=== PATIENT | female | born 1990 | race Caucasian/White ===

== ENCOUNTER 2016-10-30 16:46 | Emergency (ER) | payer MEDICAID ==
[~2016-10-30] VITALS: Wt 64.5 kg
[2016-10-30] MEDS ORDERED: ONDANSETRON 4 MG INJ IV STA (18:15)
[2016-10-30 18:30] LABS: BASOPHILS % 0.4 % (0.0-2.0); EOSINOPHILS # 0.1 10^3/ul (0.0-0.5); EOSINOPHILS % 0.6 % (0.0-7.0); HEMATOCRIT 39.9 % (37.0-47.0); HEMOGLOBIN 13.7 g/dl (12.0-16.0); LYMPHOCYTES # 2.8 10^3/ul (0.8-2.9); LYMPHOCYTES % 28.7 % (15.0-51.0); MEAN CORPUSCULAR HEMOGLOBIN 32.6 pg (29.0-33.0); MEAN CORPUSCULAR HGB CONC 34.3 g/dl (32.0-37.0); MEAN CORPUSCULAR VOLUME 95.3 fl (82.0-101.0); MEAN PLATELET VOLUME 8.8 fl (7.4-10.4); MONOCYTE # 0.5 10^3/ul (0.3-0.9); NEUTROPHIL # 6.3 10^3/ul (1.6-7.5); NEUTROPHILS % 65.3 % (39.0-77.0); PLATELET COUNT 271 10^3/UL (140-440); RED BLOOD COUNT 4.19 10^6/ul (4.20-5.40); UNCORRECTED WBC 9.6 10^3/ul (4.8-10.8); WHITE BLOOD COUNT 9.6 10^3/ul (4.8-10.8)
[2016-10-30] MEDS ORDERED: morphine 2 MG INJ IV ONE (18:30)
[2016-10-30 18:31] LABS: ADD UMIC YES; URINE BILIRUBIN (Dip) 1+ (NEGATIVE); URINE BLOOD (Dip) 2+ (NEGATIVE); URINE COLOR YELLOW (YELLOW); URINE GLUCOSE (Dip) NEGATIVE (NEGATIVE); URINE KETONES (Dip) 40 (NEGATIVE); URINE LEUKOCYTE ESTERASE (Dip) NEGATIVE (NEGATIVE); URINE NITRITE (Dip) NEGATIVE (NEGATIVE); URINE TOTAL PROTEIN (Dip) TRACE (NEGATIVE); URINE UROBILINOGEN (Dip) 0.2 E.U./dL (0.1-1.0)
[2016-10-30 18:37] LABS: CONDITION 1
[2016-10-30 18:39] LABS: ALBUMIN 4.7 g/dl (3.3-4.9); POTASSIUM 3.5 mmol/L (3.5-5.1)
[2016-10-30 18:41] LABS: CREATININE 0.79 mg/dl (0.44-1.00)
[2016-10-30 18:42] LABS: ALBUMIN/GLOBULIN RATIO 1.3; BILIRUBIN,INDIRECT 0.4 mg/dl (0-1.1); BILIRUBIN,TOTAL 0.4 mg/dl (0.2-1.3); TOTAL PROTEIN 8.3 g/dl (6.1-8.1)
[2016-10-30 18:51] LABS: BACTERIA,URINE FEW; ICTOTEST NEGATIVE (NEGATIVE); SQUAMOUS EPITHELIAL CELL,UR FEW; TRANSITIONAL EPI CELLS,URINE MODERATE
[2016-10-30 18:52] LABS: MUCUS,URINE MANY
--- NOTE | 2016-10-30 19:16 | RADRPT ---
PROCEDURE: Right Upper Quadrant Ultrasound. CLINICAL INDICATION: Abdominal Pain TECHNIQUE: Multiple real-time images were acquired of the patient's right upper quadrant abdomen a nd retroperitoneum utilizing a high resolution transducer. COMPARISON: None FINDINGS: The liver measures 12.2 cm, and demonstrates normal echogenicity. The main portal vein is patent wit h proper directional flow. There is no intrahepatic biliary ductal dilatation. The extrahepatic comm on bile duct measures 1-2 mm. The gallbladder is without stones, wall thickening, or pericholecystic fluid. The visualized pancreas is unremarkable. The right kidney measures 8.8 x 3.4 x 4.9 cm and demonstrates normal echotexture. There is no right renal calculus or hydronephrosis. The visualized abdominal aorta and IVC are grossly unremarkable. IMPRESSION: Unremarkable right upper quadrant abdominal ultrasound. No cholelithiasis or acute cholecystitis. Normal CBD. RPTAT: EE Physician Khadijah Date Time Electronically viewed and signed by Physician Khadijah on 10/30/2016 19:15 /
--- NOTE | 2016-10-30 19:33 | RADRPT ---
PROCEDURE: XR Chest AP portable CLINICAL INDICATION: Flank pain TECHNIQUE: An AP portable radiograph of the chest was submitted. COMPARISON: None. FINDINGS: Support Hardware: None Cardiovascular: The cardiovascular silhouette appears unremarkable. Lung Dasilva: The lung dasilva are mildly hyperexpanded clear. Pleural Spaces: No pneumothorax or pleural effusion is identified. Osseous Structures: The osseous structures appear intact. Soft Tissues: The soft tissues appear unremarkable. IMPRESSION: 1. Mild pulmonary hyperexpansion. 2. Otherwise, unremarkable portable chest. Physician Otf Date Time Electronically viewed and signed by Carlos A Adorno Physician on 10/30/2016 19:33 /
[2016-10-30] MEDS ORDERED: TRAM50TA2 PO (19:39)
[2016-10-30] MEDS ORDERED: IBUP-1542 PO (19:39)
--- NOTE | 2016-10-30 19:43 | ERD ---
ER Documentation Chief Complaint Date/Time DATE: 10/30/16 TIME: 19:41 Chief Complaint RIGHT UPPER QUADRANT ABD PAIN FOR FEW DAYS. NAUSEA NO VOMITING HPI This 25-year-old female presents with right upper quadrant abdominal pain for approximately 3 days radiating from her back. She has mild nausea but no vomiting. She has no urinary complaints and there is no association with food or inciting events patient has a cough, shortness breath or chest pain. ROS All systems reviewed and are negative except as per history of present illness. Medications Home Meds Active Scripts Tramadol HCl (Tramadol HCl) 50 Mg Tablet, 50 MG PO Q4 Y for PAIN, #20 TAB Prov:SHEKHAR MARQUEZ MD 10/30/16 Ibuprofen* (Motrin*) 600 Mg Tab, 600 MG PO Q6, #20 TAB Prov:SHEKHAR MARQUEZ MD 10/30/16 Allergies Allergies: Coded Allergies: No Known Allergy (Unverified , 10/30/16) PMhx/Soc Medical and Surgical Hx: pt denies Medical Hx, pt denies Surgical Hx Hx Alcohol Use: No Hx Substance Use: No Hx Tobacco Use: No Smoking Status: Never smoker Physical Exam Vitals Vital Signs Date Time Temp Pulse Resp B/P Pulse Ox O2 Delivery O2 Flow Rate FiO2 10/30/16 17:28 98.6 98 20 159/86 98 Physical Exam Const: [] Alert, [id number]. Head: Atraumatic Eyes: Normal Conjunctiva ENT: Normal External Ears, Nose and Mouth. Neck: Full range of motion..~ No meningismus. Resp: Clear to auscultation bilaterally Cardio: Regular rate and rhythm, no murmurs Abd: Soft, minimal right upper quadrant tenderness or Matt sign. There is some mild right CVA tenderness, non distended. Normal bowel sounds Skin: No petechiae or rashes Back: No midline or flank tenderness Ext: No cyanosis, or edema Neur: Awake and alert Psych: Normal Mood and Affect Result Diagram: 10/30/16180410/30/161804 Results 24 hrs Laboratory Tests Test 10/30/16 18:05 Alanine Aminotransferase (ALT/SGPT) 66IU/L Albumin 4.7g/dl Albumin/Globulin Ratio 1.30 Alkaline Phosphatase 81IU/L Anion Gap 23 Aspartate Amino Transf (AST/SGOT) 35IU/L Basophils # 0.010^3/ul Basophils % 0.4% Blood Urea Nitrogen 15mg/dl Calcium Level 10.0mg/dl Carbon Dioxide Level 23mmol/L Chloride Level 105mmol/L Creatinine 0.79mg/dl Direct Bilirubin 0.00mg/dl Eosinophils # 0.110^3/ul Eosinophils % 0.6% Globulin 3.60g/dl Glucose Level 101mg/dl Hematocrit 39.9% Hemoglobin 13.7g/dl Indirect Bilirubin 0.4mg/dl Lipase 59U/L Lymphocytes # 2.810^3/ul Lymphocytes % 28.7% Mean Corpuscular Hemoglobin 32.6pg Mean Corpuscular Hemoglobin Concent 34.3g/dl Mean Corpuscular Volume 95.3fl Mean Platelet Volume 8.8fl Monocytes # 0.510^3/ul Monocytes % 5.0% Neutrophils # 6.310^3/ul Neutrophils % 65.3% Nucleated Red Blood Cells # 0.010^3/ul Nucleated Red Blood Cells % 0.0/100WBC Platelet Count 85464^3/UL Potassium Level 3.5mmol/L Red Blood Count 4.1910^6/ul Red Cell Distribution Width 13.0% Sodium Level 147mmol/L Total Bilirubin 0.4mg/dl Total Protein 8.3g/dl Urine Bacteria FEW Urine Bilirubin 1+ Urine Clarity SLIGHTLY CLOUDY Urine Color YELLOW Urine Glucose NEGATIVE% Urine Hemoglobin 2+ Urine Ictotest NEGATIVE Urine Ketones 40 Urine Leukocyte Esterase NEGATIVE Urine Microscopic RBC 2-5/HPF Urine Microscopic WBC 0-2/HPF Urine Mucus MANY Urine Nitrite NEGATIVE Urine Specific [place] >=1.030 Urine Squamous Epithelial Cells FEW Urine Total Protein TRACE Urine Transitional Epithelial Cells MODERATE Urine Urobilinogen 0.2 E.U./dL Urine pH 6.0 White Blood Count 9.610^3/ul Current Medications Medications (Trade) Dose Ordered Sig/Cynthia Route PRN Reason Start Time Stop Time Status Last Admin Dose Admin Morphine Sulfate (morphine) 2 mg ONCE ONCE IV 10/30/16 18:30 10/30/16 18:31 DC 10/30/16 18:52 Ondansetron HCl (Zofran Inj) 4 mg ONCE STAT IV 10/30/16 18:15 10/30/16 18:16 DC 10/30/16 18:52 Procedures/MDM HCG is negative and urine is negative for leukocytes, nitrites and blood. CBC and CMP and lipase are all normal. Right upper quadrant ultrasound read as normal. Chest X-ray 1V Interpreted by me: Soft Tissue: No acute abnormalities Bones: No acute abnormalities Mediastinum/Cardiac Silhouette/Lungs: [No acute abnormalities] impression of normal 1 view chest x-ray Patient presents with right upper quadrant pain of uncertain etiology. May be muscular skeletal. Signs and symptoms do not suggest pulmonary emphysema, pneumonia, UTI, hepatobiliary disease. There is no signs or symptoms of acute abdomen. Patient was treated with tramadol and ibuprofen and observation at home . The patient was stable with no new complaints during the ER course. Clinically, there is no current evidence to suggest meningitis, sepsis, acute abdomen, pneumonia, acute coronary syndrome, pulmonary embolism, or any other emergent condition appearing to require further evaluation or hospitalization. The patient should certainly return for any new or worsening symptoms per the aftercare instructions. They should otherwise follow-up with her primary care doctor for reevaluation this week. Departure Diagnosis: Primary Impression: Abdominal pain Abdominal location: right upper quadrant Qualified Code: R10.11 - Right upper quadrant abdominal pain Condition: Stable Patient Instructions: Abdominal Pain, Flank Pain, Uncertain Cause Additional Instructions: All exams normal today. May be musculoskeletal strain. Recommend recheck for fevers, vomiting, worsening pain, blood, new symptoms or with primary care doctor. SHEKHAR MARQUEZ MD Oct 30, 2016 19:43
[2016-10-30 20:04] VITALS: BP 122/68; PULSE 70; RESP 20; TEMP 98.6
== END 2016-10-30 20:06 | disposition home or self-care (01) ==
LOC: FTE 16:46
DX: R10.11 Right upper quadrant pain (principal); R11.0 Nausea
CPT/HCPCS: 36415; 71010; 76705; 80053; 81001; 83690; 85025; 96374; 96375; J2270; J2405; Z7502; 81003

== ENCOUNTER 2016-12-17 11:03 | Emergency (ER) | payer MEDICAID ==
[~2016-12-17] VITALS: Wt 63.9 kg
[~2016-12-17 11:03] MED LIST: IBUP-1542 PO; TRAM50TA2 PO
[2016-12-17] MEDS ORDERED: ACETAMINOPHEN 500 MG TAB PO STA (14:18)
[2016-12-17] MEDS ORDERED: ONDANSETRON (ODT) 4 MG TAB ODT STA (14:18)
--- NOTE | 2016-12-17 14:49 | ERD ---
ER Documentation Chief Complaint Date/Time DATE: 12/17/16 TIME: 14:47 Chief Complaint R SIDE ABD PAIN FOR 2 DAYS. NAUSEA ONLY. NO DYSURIA OR HEMATURIA OR VB HPI This is a 26-year-old female presenting to the emergency department complaining of right-sided pelvic pain for the past 2 days. Patient states that she does have nausea with an episode of vomiting last night. She denies any diarrhea, fever, decreased appetite, dysuria, hematuria or vaginal bleeding or vaginal discharge. Patient states that she has not tried any medications for this. She states that her last menstrual period was on 26 November. Patient states that she is on oral contraceptive ROS All systems reviewed and are negative except as per history of present illness. Medications Home Meds Active Scripts Ondansetron (Ondansetron Odt) 4 Mg Tab.rapdis, 4 MG PO Q6H Y for NAUSEA AND/OR VOMITING, #10 TAB Prov:EUSEBIA HENRY PA-C 12/17/16 Nitrofurantoin Monohyd Macrocr* (Macrobid*) 100 Mg Capsr, 100 MG PO BID for 7 Days, CAP Prov:EUSEBIA HENRY PA-C 12/17/16 Tramadol HCl (Tramadol HCl) 50 Mg Tablet, 50 MG PO Q4 Y for PAIN, #20 TAB Prov:SHEKHAR MARQUEZ MD 10/30/16 Ibuprofen* (Motrin*) 600 Mg Tab, 600 MG PO Q6, #20 TAB Prov:SHEKHAR MARQUEZ MD 10/30/16 Allergies Allergies: Coded Allergies: No Known Allergy (Unverified , 10/30/16) PMhx/Soc Medical and Surgical Hx: pt denies Medical Hx, pt denies Surgical Hx Hx Alcohol Use: No Hx Substance Use: No Hx Tobacco Use: No Smoking Status: Never smoker Physical Exam Vitals Vital Signs Date Time Temp Pulse Resp B/P Pulse Ox O2 Delivery O2 Flow Rate FiO2 12/17/16 11:05 98.5 94 20 137/72 100 Physical Exam GENERAL: well-developed/well-nourished, in no apparent distress, non-toxic appearing HENT: NC/AT, moist mucous membranes EYES: Conjunctiva normal NECK: Supple, no lymphadenopathy PULM: CTA bilaterally, no rales, rhonchi, or wheezing heard CV: Normal S1S2, RRR, good capillary refill GI: Soft, non-distended, tender to palpation right pelvic region Normal bowel sounds, no masses or organomegaly felt on exam No gross peritonitis, no bruits Negative Rovsing, negative Matt, negative McBurney's point, Negative CVAT BACK: No masses EXT: No clubbing, cyanosis, or edema NEURO: Alert and Orientated SKIN: Intact, normal turgor PSYCH: Normal mood and mentation Result Diagram: 12/17/16 1550 12/17/16 1550 Results 24 hrs Laboratory Tests Test 12/17/16 14:50 12/17/16 15:50 Urine Bacteria FEW Urine Bilirubin NEGATIVE Urine Clarity CLEAR Urine Color LT. YELLOW Urine Epithelial Cells FEW Urine Glucose NEGATIVE% Urine Hemoglobin TRACE Urine Ketones 3+ Urine Leukocyte Esterase TRACE Urine Microscopic RBC 0-2/HPF Urine Microscopic WBC 5-10/HPF Urine Mucus FEW Urine Nitrite NEGATIVE Urine Specific [place] 1.020 Urine Total Protein NEGATIVE Urine Urobilinogen 0.2 E.U./dL Urine pH 6.0 Alanine Aminotransferase (ALT/SGPT) 31IU/L Albumin 4.4g/dl Albumin/Globulin Ratio 1.41 Alkaline Phosphatase 67IU/L Anion Gap 19 Aspartate Amino Transf (AST/SGOT) 21IU/L Basophils # 0.010^3/ul Basophils % 0.3% Blood Urea Nitrogen 11mg/dl Calcium Level 9.4mg/dl Carbon Dioxide Level 23mmol/L Chloride Level 103mmol/L Creatinine 0.67mg/dl Direct Bilirubin 0.00mg/dl Eosinophils # 0.010^3/ul Eosinophils % 0.3% Globulin 3.10g/dl Glucose Level 94mg/dl Hematocrit 38.2% Hemoglobin 13.0g/dl Indirect Bilirubin 0.4mg/dl Lipase 43U/L Lymphocytes # 2.110^3/ul Lymphocytes % 29.0% Mean Corpuscular Hemoglobin 33.0pg Mean Corpuscular Hemoglobin Concent 34.0g/dl Mean Corpuscular Volume 97.0fl Mean Platelet Volume 10.5fl Monocytes # 0.410^3/ul Monocytes % 5.2% Neutrophils # 4.710^3/ul Neutrophils % 64.9% Nucleated Red Blood Cells # 0.010^3/ul Nucleated Red Blood Cells % 0.0/100WBC Platelet Count 04999^3/UL Potassium Level 3.9mmol/L Red Blood Count 3.9410^6/ul Red Cell Distribution Width 11.9% Sodium Level 141mmol/L Total Bilirubin 0.4mg/dl Total Protein 7.5g/dl White Blood Count 7.210^3/ul Current Medications Medications (Trade) Dose Ordered Sig/Cynthia Route PRN Reason Start Time Stop Time Status Last Admin Dose Admin Ondansetron HCl (Zofran Odt) 4 mg ONCE STAT ODT 12/17/16 14:18 12/17/16 14:20 DC 12/17/16 14:28 Acetaminophen (Tylenol Tab) 1,000 mg ONCE STAT PO 12/17/16 14:18 12/17/16 14:20 DC 12/17/16 14:29 Procedures/MDM This is a 26-year-old female presenting to the emergency department complaining of right pelvic pain, nausea and an episode of vomiting last night for the past 2 days. Patient appears well, she has stable vital signs she is speaking clearly. On examination patient was tender in the right pelvic region/RLQ. Lab work was done, Lab work was drawn. CBC did not show any evidence of leukocytosis or anemia. CMP did not show any evidence of renal, liver, or electrolyte abnormalities. Lipase was normal. UA did show trace leukocyte esterase with 710 white blood cell count therefore patient will be empirically treated for urinary tract infection. A pelvic ultrasound was done did not show any ovarian torsion or ruptured ovarian cyst. Patient states that she is in a lot of pain and wanted a CT of the abdomen which was unremarkable for appendicitis. I discussed these diagnostic testing with the patient and discussed to follow-up with an [facility] for further evaluation management. A prescription for Macrobid was given. Discussed return the ER for any worsening symptoms. She understands and agrees with Departure Diagnosis: Primary Impression: Pelvic pain Additional Impression: UTI (urinary tract infection) Condition: Stable EUSEBIA HENRY PA-C Dec 17, 2016 14:49
--- NOTE | 2016-12-17 15:08 | RADRPT ---
PROCEDURE: Pelvic ultrasound. CLINICAL INDICATION: Pelvic pain TECHNIQUE: Humphrey scale, color doppler, spectral doppler ultrasound of the pelvis was performed with transabdominal and transvaginal transducers. COMPARISON: No prior studies are available for comparison. FINDINGS: Uterus: Position: Anteverted. Normal myometrial echogenicity. Normal appearance of the endometrium. Ovaries: Normal sized ovaries with preserved blood flow. No adnexal masses. Free fluid: None. Measurements: Endometrium: 0.48 cm Uterus: 6.3 x 3.7 x 4.0 cm Right ovary: 2.6 x 1.7 x 1.3 cm Left ovary: 2.8 x 1.9 x 2.0 cm IMPRESSION: Normal examination. RPTAT: AADD .Cricket Ivy MD, Date Time Electronically viewed and signed by .Cricket Ivy MD, on 12/17/2016 15:08 .B/
[2016-12-17 15:23] LABS: ADD UMIC YES; URINE BILIRUBIN (Dip) NEGATIVE (NEGATIVE); URINE BLOOD (Dip) TRACE (NEGATIVE); URINE COLOR LT. YELLOW (YELLOW); URINE GLUCOSE (Dip) NEGATIVE (NEGATIVE); URINE KETONES (Dip) 3+ (NEGATIVE); URINE LEUKOCYTE ESTERASE (Dip) TRACE (NEGATIVE); URINE NITRITE (Dip) NEGATIVE (NEGATIVE); URINE TOTAL PROTEIN (Dip) NEGATIVE (NEGATIVE); URINE UROBILINOGEN (Dip) 0.2 E.U./dL (0.1-1.0)
[2016-12-17 15:34] LABS: BACTERIA,URINE FEW; MUCUS,URINE FEW; URINE RBCS 0-2 /HPF (0)
[2016-12-17 15:56] LABS: ADD SCAN DIFF NO
[2016-12-17 15:59] LABS: BASOPHILS % 0.3 % (0.0-2.0); EOSINOPHILS % 0.3 % (0.0-7.0); HEMATOCRIT 38.2 % (37.0-47.0); LYMPHOCYTES # 2.1 10^3/ul (0.8-2.9); MEAN PLATELET VOLUME 10.5 fl (7.4-10.4); MONOCYTE # 0.4 10^3/ul (0.3-0.9); MONOCYTES % 5.2 % (0.0-11.0); NEUTROPHIL # 4.7 10^3/ul (1.6-7.5); NEUTROPHILS % 64.9 % (39.0-77.0); PLATELET COUNT 257 10^3/UL (140-415); RED BLOOD COUNT 3.94 10^6/ul (4.20-5.40); RED CELL DISTRIBUTION WIDTH 11.9 % (11.5-14.5); WHITE BLOOD COUNT 7.2 10^3/ul (4.8-10.8)
[2016-12-17 16:14] LABS: ALBUMIN 4.4 g/dl (3.3-4.9); POTASSIUM 3.9 mmol/L (3.5-5.1)
[2016-12-17 16:16] LABS: CREATININE 0.67 mg/dl (0.44-1.00)
[2016-12-17 16:17] LABS: ALBUMIN/GLOBULIN RATIO 1.41; BILIRUBIN,INDIRECT 0.4 mg/dl (0-1.1); BILIRUBIN,TOTAL 0.4 mg/dl (0.2-1.3); CALCIUM 9.4 mg/dl (8.4-10.2); TOTAL PROTEIN 7.5 g/dl (6.1-8.1)
--- NOTE | 2016-12-17 17:44 | RADRPT ---
PROCEDURE: CT Abdomen and Pelvis without contrast. CLINICAL INDICATION: Abdominal and pelvic pain. Right-sided pain. TECHNIQUE: CT scan of the abdomen and pelvis without contrast was performed. Coronal and sagittal reformatted images were obtained from the axial source images. Images were reviewed on a high-resolu Spreaker PACS workstation. Total exam DLP is 383.18 mGy-cm. CTDIvol is 7.73 mGy. One or more of the [facility] dose reduction techniques were used: Automated exposure control, adjustment of the mA and/or kV according to patient size, use of iterative reconstruction technique. COMPARISON: None. FINDINGS: The lung bases are normal. There is no pleural effusion. The liver is normal in size and attenuation. There is no focal hepatic lesion. The gallbladder and bile ducts are normal. The spleen is normal in size. There is no focal splenic lesion. Both adrenals are normal with no enlargement or mass. The pancreas is unremarkable with no mass or evidence of pancreatitis. There is no renal mass or hydronephrosis. There is no renal calculus or ureteral calculus. The abdominal aorta is not dilated. There is no retroperitoneal lymphadenopathy or mass. There is no pelvic lymphadenopathy or mass. The bladder and distal ureters are normal. The periappendiceal region is unremarkable with no evidence of appendicitis. The appendix is well se en and appears normal. The bowel and mesentery are normal. There is no free fluid or free gas. The osseous structures are unremarkable with no fracture or lytic lesion. IMPRESSION: 1. Unremarkable CT scan of the abdomen and pelvis. 2. No urinary tract calculus or hydronephrosis. 3. Normal appendix. RPTAT: QQ .Everette Ortega MD, Date Time Electronically viewed and signed by .Everette Ortega MD, on 12/17/2016 17:44 .R/
[2016-12-17] MEDS ORDERED: NITR-58 PO (18:00)
[2016-12-17] MEDS ORDERED: ONDA4TAB14 PO (18:03)
== END 2016-12-17 18:25 | disposition home or self-care (01) ==
LOC: FTE 11:03
DX: R10.2 Pelvic and perineal pain (principal); N39.0 Urinary tract infection, site not specified; R11.2 Nausea with vomiting, unspecified
CPT/HCPCS: 74176; 76830; 76856; 80053; 81001; 83690; 85025; 87591; Z7502; Z7610; 81003

== ENCOUNTER 2017-02-26 20:42 | Emergency (ER) | payer MEDICAID ==
[~2017-02-26] VITALS: Wt 61.0 kg
[~2017-02-26 20:42] MED LIST changes: +NITR-58 PO; +ONDA4TAB14 PO
[2017-02-26] MEDS ORDERED: ONDANSETRON (ODT) 4 MG TAB ODT STA (21:47)
[2017-02-26] MEDS ORDERED: IBUPROFEN 200 MG TAB PO ONE (22:00)
[2017-02-27 00:03] LABS: ADD UMIC YES; URINE BILIRUBIN (Dip) NEGATIVE (NEGATIVE); URINE BLOOD (Dip) TRACE (NEGATIVE); URINE COLOR LT. YELLOW (YELLOW); URINE GLUCOSE (Dip) NEGATIVE (NEGATIVE); URINE KETONES (Dip) NEGATIVE (NEGATIVE); URINE LEUKOCYTE ESTERASE (Dip) NEGATIVE (NEGATIVE); URINE NITRITE (Dip) NEGATIVE (NEGATIVE); URINE TOTAL PROTEIN (Dip) NEGATIVE (NEGATIVE); URINE UROBILINOGEN (Dip) 0.2 E.U./dL (0.1-1.0)
[2017-02-27 00:17] LABS: BACTERIA,URINE RARE; SQUAMOUS EPITHELIAL CELL,UR RARE; URINE RBCS 0-2 /HPF (0)
[2017-02-27] MEDS ORDERED: IBUP-1542 PO (00:36)
--- NOTE | 2017-02-27 00:50 | ERA ---
ER Documentation Chief Complaint Date/Time DATE: 02/27/17 TIME: 00:44 Chief Complaint UPPER ABD PAIN RADIATES TO BACK X1WEEK HPI This is a 26-year-old female complaining of cyclical pelvic pain 6+ months. Patient describes her pain as crampy. Patient's discomfort follows a cyclical pattern parallel to her menstrual cycle. Patient's last menstrual period was February 19. Patient denies nausea, vomiting, diarrhea, aggravating or relieving factors, chills anorexia, weight loss, migrating pain, postprandial abdominal pain, new or recently changed medications, genital pain or ingestion of new, sexual activity or undercooked food. ROS All systems reviewed and are negative except as per history of present illness. Medications Home Meds Active Scripts Ibuprofen* (Motrin*) 600 Mg Tab, 600 MG PO Q6H Y for PAIN AND OR ELEVATED TEMP, #30 TAB Prov:TETE COOLEY PA-C 02/27/17 Ondansetron (Ondansetron Odt) 4 Mg Tab.rapdis, 4 MG PO Q6H Y for NAUSEA AND/OR VOMITING, #10 TAB Prov:EUSEBIA HENRY PA-C 12/17/16 Nitrofurantoin Monohyd Macrocr* (Macrobid*) 100 Mg Capsr, 100 MG PO BID for 7 Days, CAP Prov:EUSEBIA HENRY PA-C 12/17/16 Tramadol HCl (Tramadol HCl) 50 Mg Tablet, 50 MG PO Q4 Y for PAIN, #20 TAB Prov:SHEKHAR MARQUEZ MD 10/30/16 Ibuprofen* (Motrin*) 600 Mg Tab, 600 MG PO Q6, #20 TAB Prov:SHEKHAR MARQUEZ MD 10/30/16 Allergies Allergies: Coded Allergies: No Known Allergy (Unverified , 10/30/16) PMhx/Soc Medical and Surgical Hx: pt denies Medical Hx, pt denies Surgical Hx Hx Alcohol Use: No Hx Substance Use: No Hx Tobacco Use: No Smoking Status: Never smoker Physical Exam Vitals Vital Signs Date Time Temp Pulse Resp B/P Pulse Ox O2 Delivery O2 Flow Rate FiO2 02/26/17 20:46 98.8 91 18 146/86 99 Physical Exam Const: Well-appearing well-developed 26-year-old female presenting with her mother Head: Atraumatic Eyes: Normal Conjunctiva ENT: Normal External Ears, Nose and Mouth. Neck: Full range of motion..~ No meningismus. Resp: Clear to auscultation bilaterally Cardio: Regular rate and rhythm, no murmurs Abd: Soft, non tender, non distended. Normal bowel sounds Skin: No petechiae or rashes Back: No midline or flank tenderness Ext: No cyanosis, or edema Neur: Awake and alert Psych: Normal Mood and Affect Results 24 hrs Laboratory Tests Test 02/26/17 22:04 Urine Color LT. YELLOW Urine Clarity CLEAR Urine pH 6.0 Urine Specific [place] <=1.005 Urine Ketones NEGATIVE Urine Nitrite NEGATIVE Urine Bilirubin NEGATIVE Urine Urobilinogen 0.2 E.U./dL Urine Leukocyte Esterase NEGATIVE Urine Microscopic RBC 0-2/HPF Urine Microscopic WBC NONE SEEN/HPF Urine Squamous Epithelial Cells RARE Urine Bacteria RARE Urine Hemoglobin TRACE Urine Glucose NEGATIVE% Urine Total Protein NEGATIVE Current Medications Medications (Trade) Dose Ordered Sig/Cynthia Route PRN Reason Start Time Stop Time Status Last Admin Dose Admin Ondansetron HCl (Zofran Odt) 4 mg ONCE STAT ODT 02/26/17 21:47 02/26/17 21:49 DC 02/26/17 22:02 Ibuprofen (Motrin) 400 mg ONCE ONCE PO 02/26/17 22:00 02/26/17 22:01 DC 02/26/17 22:02 Procedures/MDM Patient was evaluated and worked up for pelvic discomfort. Patient was given ibuprofen with minimal to moderate relief. The workup included urine and tests. The test was negative and the urine test were unremarkable. Patient has had imaging modalities in the past for the same symptomology which have all been negative. Current most likely diagnosis is primary dysmenorrhea. This treatment plan will thus include ibuprofen as well as close follow-up with PCP. Patient states that she does not have a PCP so a list of clinics have been given. At this time I do not suspect ovarian torsion, tubo-ovarian abscess, mechanical obstruction, ectopic , hernia, appendicitis, intestinal ischemia, PID, AAA, diverticulitis or cystitis. The patient is well appearing, and tolerates PO. I have spoke with the patient regarding their condition and future management. They have verbally responded that they understand their status and treatment plan. The patients vitals are stable, and their current condition is appropriate for discharge. The patient will be given discharge instructions with return precautions. Departure Diagnosis: Primary Impression: Dysmenorrhea in adolescent Additional Impression: Dysmenorrhea Condition: Stable Patient Instructions: Dysmenorrhea Referrals: [facility] YOU HAVE RECEIVED A MEDICAL SCREENING EXAM AND THE RESULTS INDICATE THAT YOU DO NOT HAVE A CONDITION THAT REQUIRES URGENT TREATMENT IN THE EMERGENCY DEPARTMENT. FURTHER EVALUATION AND TREATMENT OF YOUR CONDITION CAN WAIT UNTIL YOU ARE SEEN IN YOUR DOCTORS OFFICE WITHIN THE NEXT 1-2 DAYS. IT IS YOUR RESPONSIBILITY TO MAKE AN APPOINTMENT FOR FOLOW-UP CARE. IF YOU HAVE A PRIMARY DOCTOR --you should call your primary doctor and schedule an appointment IF YOU DO NOT HAVE A PRIMARY DOCTOR YOU CAN CALL OUR PHYSICIAN REFERRAL HOTLINE AT IF YOU CAN NOT AFFORD TO SEE A PHYSICIAN YOU CAN CHOSE FROM THE FOLLOWING [facility] [address] [facility] [address] [facility] [address] [facility] [address] [facility] [address] [facility]. [address] [facility] () Usted se jesus hecho un examen mdico de control que le indica que no est en roberto condicin que requiera tratamiento urgente en el Departamento de Emergencia. Un estudio ms profundo y el tratamiento de dunbar condicin pueden esperar sin ningn riesgo hasta que usted sea atendida/o en el consultorio de dunbar mdico o roberto cl sara. Es responsabilidad suya arreglar roberto shelly para el seguimiento del stefany. MANEJO DE CONDICIONES NO URGENTES EN EL FUTURO 1) Si usted tiene un mdico de atencin primaria: Usted debera llamar a dunbar mdico de atencin primaria antes de venir al departamento de emergencia. Despus de las horas de consultorio, dunbar doctor o dunbar asociado/a est disponible por telfono. El mdico o enfermero de boy en el servicio telefnico puede asesorarle por geoffrey medio para atender el problema, o stefany contrario se puede programar roberto shelly. 2) Si usted no tiene un mdico de atencin primaria: Llame al mdico o clnica de referencia que aparece abajo jarek las horas de consultorio para hacer roberto shelly para que le vean. CLINICAS: [facility] [phone] [address] [facility] [phone] [facility] [phone] [place] [phone] [place] [address] [phone] [facility] [phone] [address] Additional Instructions: Follow up with your PCP within the next 1-3 days for a more thorough evaluation and a possible referral to a specialist. Return the the emergency department immediately if symptoms worsen or change. If you have any questions regarding medications, ask your pharmacist or us before you leave. If any adverse reactions occur while taking your medications, discontinue the treatment and return to the emergency department immediately. Take your medications as directed, and complete the entire course of treatment. TETE COOLEY PA-C February 27, 2017 00:50
[2017-02-27 00:59] VITALS: BP 123/80; PULSE 76; RESP 22; TEMP 98.3
== END 2017-02-27 01:01 | disposition home or self-care (01) ==
LOC: FTE 20:42
DX: N94.6 Dysmenorrhea, unspecified (principal); R10.2 Pelvic and perineal pain
CPT/HCPCS: 81001; Z7502; Z7610; 99283